=== PATIENT | male | born 1945 | race Caucasian/White ===

== ENCOUNTER → 2016-09-16 | Outpatient (CLI) | payer MEDICARE ==
--- NOTE | 2016-09-16 10:04 | PCVCIMAG ---
APPROVED REPORT Laterality: Bilateral Patient Location: Out-Patient Indications Stenosis Doppler Spectral Velocity Analysis PSV / EDVPSV / EDV ECA (R) 141 / 19 cm/sECA (L) 123 / 14 cm/s dICA (R) 72 / 21 cm/sdICA (L) 64 / 24 cm/s Hunter (R) 86 / 31 cm/smICA (L) 102 / 32 cm/s pICA (R) 75 / 27 cm/spICA (L) 97 / 22 cm/s Bulb (R) 59 / 20 cm/sBulb (L) 126 / 35 cm/s dCCA (R) 94 / 23 cm/sdCCA (L) 100 / 27 cm/s mCCA (R) 132 / 24 cm/smCCA (L) 121 / 34 cm/s Vert (R) 36 / 9 cm/sVert (L) 48 / 11 cm/s ICA/CCA 0.91ICA/CCA 1.02 Basic Measurements Blood Pressure: Pulses: Right Left RightLeft Brachial(Sitting) 104/04vbKp16/60mmHgTemporal Real Time B-Mode Imaging Vert. (R)AntegradeVert. (L)Antegrade Findings The right carotid bulb has mild heterogeneous plaque. The right proximal internal carotid artery shows <40% stenosis. The right common carotid artery shows <40% stenosis. The right external carotid artery shows <40% stenosis. The left carotid bulb has moderate heterogeneous plaque. The left proximal internal carotid artery shows <40% stenosis. The left common carotid artery shows no significant stenosis. The left external carotid artery shows <40% stenosis. Conclusion 1. Right internal and common carotid artery stenosis (<40%) 2. Left internal carotid artery stenosis (<40%) 3. Antegrade vertebral flow
--- NOTE | 2016-09-16 17:10 | PCVCIMAG ---
APPROVED REPORT Exam: Stress Echocardiogram Indication: cad,s/p PTCA,stents,htn Patient Location: Echo lab Stress Nurse: Sherie Abdul RN Status: routine HR: 83 bpm Rhythm: NSR Medical History Medical History: CAD s/p stent,PTCA, HTN Pretest Chest Pain Characteristics: No chest pain Exercise History: Indeterminate Physical Disabilities: Knees Procedure The patient underwent an Exercise Stress Test using the Carmita Protocol. Blood pressure, heart rate, and EKG were monitored. An Echocardiogram was performed by opto mechanical technician in four stages in quad fashion. At peak stress, four selected images were obtained and placed side by side with resting images for comparison. Stress Test Details Stress Test: Exercise stress testing was performed using a Carmita protocol. HR Resting HR: 83 bpmMax Heart Rate (APMHR): 149 bpm Max HR Achieved: 116 bpmTarget HR (85% APMHR): 126 bpm % of APMHR: 77 Recovery HR: 97 bpm HR response to stress: Accelerated HR response to stress BP Resting BP: 104/62 mmHg Max BP: 140/56 mmHg Recovery BP: 118/60 mmHg ECG Resting ECG: Sinus Rhythm Stress ECG: Sinus Rhythm Maximum ST Deviation: .45 mm Arrhythmia: None Recovery ECG: Sinus Rhythm Recovery Arrhythmia: None Clinical Reason for Termination: Maximal effort Stress Symptoms: none Exercise duration: 6 min 37 sec Highest Stage Achieved: Stage 3: 3.4 mph at 14% grade. Exercise capacity: 8.1 METs Overall Exercise Capacity for Age: Poor Angina Score: None Stress ECG Conclusion Normal submaximal stress test. The patient exercised according to the CARMITA protocol for 6:37 min, achieving a work level of Max. METS:8.1 The resting heart rate of 83 bpm traci to a maximal heart rate of 116 bpm. . This value represents 77% of the maximal, age-predicted heart rate. The resting blood pressure of 104/62 mmHg, traci to a maximum blood pressure of 140/56 mmHg. The exercise test was stopped due to fatigue and knee pain. [place] Treadmill Score is 3.8 which is Moderate risk. Pre-Stress Echo The resting Echocardiogram showed normal left ventricular contractility with an estimated Ejection Fraction of about 55%. Normal wall motion in all segments on baseline images. Post-Stress Echo The stress Echocardiogram showed normal left ventricular contractility with an estimated Ejection Fraction of about 65%. Normal augmentation of wall motion in all segments on post stress images. Clinical No clinical or ECG evidence for ischemia in a submaximal stress test.. Conclusion Clinical Response: Non-ischemic Exercise Capacity: Below Average Stress ECG Response: Indeterminant Stress Echo Images: Non-ischemic Normal stress echocardiogram with submaximal exercise stress. <Conclusion> Normal stress echocardiogram with submaximal exercise stress.
== END | disposition home or self-care (01) ==
LOC: PCVCIMAG 08:48
PROVIDERS: ATTEND Internal Medicine Cardiovascular Disease
DX: I65.23 Occlusion and stenosis of bilateral carotid arteries (principal); I25.10 Atherosclerotic heart disease of native coronary artery without angina pectoris; I10 Essential (primary) hypertension; E78.5 Hyperlipidemia, unspecified; Z95.5 Presence of coronary angioplasty implant and graft
CPT/HCPCS: 93325; 93351; 93880

== ENCOUNTER → 2017-06-03 | Outpatient (CLI) | payer MEDICARE | END | disposition home or self-care (01) | LOC: PCVCCLINIC 10:43 | DX: I25.10 Atherosclerotic heart disease of native coronary artery without angina pectoris (principal); I10 Essential (primary) hypertension; E78.00 Pure hypercholesterolemia, unspecified; Z82.49 Family history of ischemic heart disease and other diseases of the circulatory system; Z79.899 Other long term (current) drug therapy; Z79.82 Long term (current) use of aspirin | CPT/HCPCS: 80061; 93005; G0463 ==

== ENCOUNTER → 2018-03-16 | Outpatient (CLI) | payer MEDICARE ==
--- NOTE | 2018-03-16 13:52 | PCVCIMAG ---
APPROVED REPORT Study performed: 03/16/2018 12:29:54 Exam: Stress Echocardiogram Indication: CAD s/p PCI RCA and LAD stents, HTN, HLP Patient Location: Echo lab Stress Nurse: Sherie Abdul RN Status: routine Ht: 5 ft 10 in HR: 80 bpm BP: 118/70 mmHg Rhythm: NSR Procedure The patient underwent an Exercise Stress Test using the Venkat Protocol. Blood pressure, heart rate, and EKG were monitored. An Echocardiogram was performed by wind turbine technician in four stages in quad fashion. At peak stress, four selected images were obtained and placed side by side with resting images for comparison. Stress Test Details Stress Test: Exercise stress testing was performed using a Venkat protocol. HR Resting HR: 80 bpmMax Heart Rate (APMHR): 147 bpm Max HR Achieved: 113 bpmTarget HR (85% APMHR): 124 bpm % of APMHR: 76 Recovery HR: 88 bpm HR response to stress: Normal HR response to stress BP Resting BP: 118/70 mmHg Max BP: 148/70 mmHg Recovery BP: 148/70 mmHg BP response to stress: Normal blood pressure response to stress. ECG Resting ECG: Sinus Rhythm Stress ECG: Sinus Rhythm ST Change: Normal Arrhythmia: None Recovery ECG: Sinus Rhythm Recovery ST Change: Normal Recovery Arrhythmia: None Clinical Reason for Termination: Maximal effort, leg fatigue and knee pain Stress Symptoms: Leg Fatigue Exercise duration: 6 min 34 sec Highest Stage Achieved: Stage 3: 3.4 mph at 14% grade. Exercise capacity: 7.8 METs Overall Exercise Capacity for Age: Average Scale: Active Angina Score: None Pre-Stress Echo The resting Echocardiogram showed normal left ventricular contractility with an estimated Ejection Fraction of about 55%. Normal wall motion in all segments on baseline images. Post-Stress Echo The stress Echocardiogram showed normal left ventricular contractility with an estimated Ejection Fraction of about 65%. Normal augmentation of wall motion in all segments on post stress images. Clinical No clinical or ECG evidence for ischemia. Conclusion Clinical Response: Non-ischemic Exercise Capacity: Average Stress ECG Response: Equivocal Stress Echo Images: Non-ischemic The left ventricle is normal in size and wall thickness in both the rest and stress images. Diminished accuracy of study due to inability of the patient to achieve 85% of maximal HR. Other Information Study Quality: Adequate <Conclusion> The left ventricle is normal in size and wall thickness in both the rest and stress images. Diminished accuracy of study due to inability of the patient to achieve 85% of maximal HR.
== END | disposition home or self-care (01) ==
LOC: PCVCIMAG 12:48
PROVIDERS: ATTEND Internal Medicine Cardiovascular Disease
DX: I25.10 Atherosclerotic heart disease of native coronary artery without angina pectoris (principal); I10 Essential (primary) hypertension; E78.5 Hyperlipidemia, unspecified
CPT/HCPCS: 93325; 93351